=== PATIENT | male | born 1990 | race Caucasian/White ===

== ENCOUNTER 2024-05-04 08:59 | Outpatient (CLI) | payer OTHER | END 2024-05-04 09:05 | disposition home or self-care (01) | LOC: RAD 08:59 | PROVIDERS: ATTEND Podiatrist Foot Surgery | DX: M20.41 Other hammer toe(s) (acquired), right foot (principal); M20.42 Other hammer toe(s) (acquired), left foot ==

== ENCOUNTER 2025-05-27 07:38 | Outpatient (CLI) | payer OTHER | END 2025-05-27 07:50 | disposition home or self-care (01) | LOC: TOM 07:38 | PROVIDERS: ATTEND Internal Medicine | DX: I71.9 Aortic aneurysm of unspecified site, without rupture (principal) | CPT/HCPCS: 71275 ==